=== PATIENT | female | born 1965 | race Caucasian/White ===

== ENCOUNTER 2018-07-23 15:13 | Emergency (ER) | payer BC ==
[2018-07-23 15:21] VITALS: PULSE 87; TEMP 97.5; BMI 30.8
--- NOTE | 2018-07-23 16:24 | PDOC ---
History of Present Illness - General Chief Complaint: Nasal Bleeding Stated Complaint: EPISTAXIS Time Seen by Provider: 07/23/18 15:52 History Source: Patient Exam Limitations: No Limitations - History of Present Illness Initial Comments: 07/23/18 17:10 Patient came in by ambulance for evaluation of recurrent nosebleeds. States today had an acute onset without trauma or any changes in exercise activity of left nostril bleeding that had what family members consider profuse amount with clots. Family called 911 and patient became increasingly anxious and reports to be mildly dizzy. Patient has had no history of epistaxis or posterior nosebleeds. Patient has a history of hypertension but has been well controlled with amlodipine. Son who is a harbor [employer] police and daughter who is a PA student now have provided her with moisturizing treatments to her nose, humidification to her room, and instructed how to stop an anterior nosebleed. Became concerned when patient started to complain about dizziness. Timing/Duration: 1 week, intermittent Associated Symptoms: reports: malaise, weakness Past History - Travel Traveled outside of the country in the last 30 days: No Close contact w/someone who was outside of country & ill: No - Past Medical History Allergies/Adverse Reactions: Allergies Allergy/AdvReac Type Severity Reaction Status Date / Time No Known Allergies Allergy Verified 07/23/18 15:21 Home Medications: Ambulatory Orders Amlodipine Besylate 5 mg PO ASDIR 07/23/18 Atorvastatin Ca [Lipitor] 10 mg PO HS 07/23/18 Levothyroxine [Synthroid -] 75 mcg PO QID 07/23/18 COPD: No HTN: Yes Hypercholesterolemia: Yes Thyroid Disease: Yes (HYPO) - Suicide/Smoking/Psychosocial Hx Smoking History: Never smoked Review of Systems - Review of Systems Able to Perform ROS?: Yes Is the patient limited Spanish proficient: Yes Constitutional: Yes: Symptoms Reported, See HPI HEENTM: Yes: See HPI. No: Symptoms Reported Respiratory: Yes: See HPI ABD/GI: No: Symptoms Reported Integumentary: Yes: Symptoms Reported *Physical Exam - Vital Signs Last Vital Signs Temp Pulse Resp BP Pulse Ox 97.5 F L 87 18 143/80 96 07/23/18 15:17 07/23/18 15:17 07/23/18 15:17 07/23/18 15:17 07/23/18 15:17 - Physical Exam General Appearance: Yes: Nourished, Appropriately Dressed, Apparent Distress, Mild Distress, Moderate Distress HEENT: positive: DAVID, TMs Normal, Pharynx Normal, Nasal Congestion. negative: Normal ENT Inspection (excoriated nostril and hyper-erythematous in the anterior aspect of her left nostril. No active bleeding noted, no bleeding from right nostril, no bleeding in posterior pharynx noted.), Tonsillar Exudate, Tonsillar Erythema, Rhinorrhea Neck: positive: Supple, Lymphadenopathy (R), Lymphadenopathy (L). negative: Tender Respiratory/Chest: positive: Lungs Clear, Normal Breath Sounds Gastrointestinal/Abdominal: positive: Soft. negative: Tender Musculoskeletal: positive: Normal Inspection Extremity: positive: Normal Inspection. negative: Normal Capillary Refill Integumentary: positive: Normal Color, Dry, Warm Neurologic: positive: trade show specialist II-XII NML intact, Fully Oriented, Alert, Normal Mood/ Affect, Normal Response Moderate Sedation - Procedure Monitoring Vital Signs: Procedure Monitoring Vital Signs Temperature 97.5 F L 07/23/18 15:17 Pulse Rate 87 07/23/18 15:17 Respiratory Rate 18 07/23/18 15:17 Blood Pressure 143/80 07/23/18 15:17 O2 Sat by Pulse Oximetry (%) 96 07/23/18 15:17 *DC/Admit/Observation/Transfer Diagnosis at time of Disposition: Recurrent epistaxis - Discharge Dispostion Disposition: HOME Condition at time of disposition: Stable Decision to Admit order: No - Referrals - Patient Instructions Printed Discharge Instructions: DI for Nosebleed Additional Instructions: Hold pressure to both nostrils leaning head forward, for 10 minutes using paper towel or Kleenex. If nosebleed does not stop repeat for an additional 10 minutes If nosebleed still does not. Seek medical evaluation Once nosebleed has resolved, may use Vaseline or bacitracin ointment just in the anterior aspect of nostrils to keep airways moist Drink lots of fluids to replace any blood loss Remember that blood can cause an upset stomach and or diarrhea if swallowed Consider humidifier in room at night to avoid drying of mucous membranes Never uses any instrument/Q-tips/fingers into nostrils to avoid dislodging scabbing and recurrence of bleeding Do not blow nose, and do not put any cotton balls or Kleenex into nose to help stop bleeding If nosebleeds occur frequently have evaluation by ear nose and throat doctor for possible further treatment and cauterization Return to emergency department for inability to stop nosebleed, lightheadedness , fevers, or any other worsened symptoms - Post Discharge Activity Forms/Work/School Notes: Back to Work
[2018-07-23 16:46] VITALS: BP 133/92
== END 2018-07-23 16:30 | disposition home or self-care (01) ==
LOC: JERFT 15:13
DX: R04.0 Epistaxis (principal); R45.0 Nervousness; I10 Essential (primary) hypertension; E78.00 Pure hypercholesterolemia, unspecified; E03.9 Hypothyroidism, unspecified
CPT/HCPCS: 99281-25

== ENCOUNTER 2023-09-06 04:42 | Day surgery (SDC) | payer BC ==
[2023-09-05 10:06] VITALS: BMI 29.8
[2023-09-06 09:59] VITALS: TEMP 98.6
[2023-09-06 10:32] VITALS: BP 125/67; PULSE 76; RESP 17
== END 2023-09-06 10:34 | disposition home or self-care (01) ==
LOC: JASU-ENDO 04:42
PROVIDERS: ATTEND Internal Medicine Gastroenterology
PROC: 0DBH8ZX Excision of Cecum, Via Natural or Artificial Opening Endoscopic, Diagnostic (ICD-10-PCS; principal; 2023-09-06 09:45)
DX: Z12.11 Encounter for screening for malignant neoplasm of colon (principal); K63.5 Polyp of colon; K64.8 Other hemorrhoids; K57.30 Diverticulosis of large intestine without perforation or abscess without bleeding; K59.89 Other specified functional intestinal disorders; I10 Essential (primary) hypertension
CPT/HCPCS: 88305-TC